=== PATIENT | female | born 1975 | race Two or more races ===

== ENCOUNTER 2017-05-13 07:09 | Day surgery (SDC) | payer OTHER ==
[~2017-05-13] VITALS: Ht 170.2 cm; Wt 78.0 kg
[~2017-05-13 07:09] MED LIST: No meds per pt.; SILVER NITRATE STICK TP ONE
[2017-05-13] MEDS ORDERED: EPINEPHRINE 1 MG/ML, 1ML ONE (07:38)
[2017-05-13] MEDS ORDERED: LIDOCAINE/PF 1%, 30ML ONE (07:39)
[2017-05-13] MEDS ORDERED: LIDOCAINE 1%, 2ML ONE (08:06)
[2017-05-13 08:26] VITALS: BP 127/86
[2017-05-13] MEDS ORDERED: LACTATED RINGERS 1,000 ML IV SCH (08:29)
[2017-05-13] MEDS ORDERED: LIDOCAINE 1%, 2ML SQ PRN (08:30)
[2017-05-13 08:41] LABS: HCG UR OBC PASS
[2017-05-13] MEDS ORDERED: FENTANYL PF 100 MCG/2ML ONE (09:21)
[2017-05-13] MEDS ORDERED: METOCLOPRAMIDE 5 MG/ML, 2ML ONE (09:37)
[2017-05-13] MEDS ORDERED: KETOROLAC 30 MG/1 ML ONE ×2 (09:37)
[2017-05-13] MEDS ORDERED: ONDANSETRON 2MG/ML, 2ML ONE (09:37)
[2017-05-13] MEDS ORDERED: PROPOFOL 10 MG/ML, 20ML ONE (09:37)
[2017-05-13] MEDS ORDERED: DEXAMETHASONE 4 MG/ML, 1ML ONE (09:37)
[2017-05-13] MEDS ORDERED: LIDOCAINE 1%-EPI 1:100K, 30ML INFIL ONE (09:59)
[2017-05-13] MEDS ORDERED: hydrALAzine 20 MG/ML, 1ML IV PRN (10:00)
[2017-05-13] MEDS ORDERED: MIDAZOLAM 1 MG/ML, 2ML IV PRN (10:00)
[2017-05-13] MEDS ORDERED: MEPERIDINE/PF 25MG/0.5ML IVPush PRN (10:00)
[2017-05-13] MEDS ORDERED: ONDANSETRON 2MG/ML, 2ML IVPush PRN (10:00)
[2017-05-13] MEDS ORDERED: LABETALOL 5MG/ML, 20ML IV PRN (10:00)
[2017-05-13] MEDS ORDERED: FENTANYL PF 100 MCG/2ML IV PRN (10:00)
[2017-05-13] MEDS ORDERED: HYDROmorphone 1 MG/ML, 1ML IV PRN (10:00)
[2017-05-13] MEDS ORDERED: OXYcodone 5 MG/5 ML ORAL.SOL UDC PO PRN (10:00)
[2017-05-13] MEDS ORDERED: PROMETHAZINE 25 MG/ML, 1ML IV PRN (10:00)
[2017-05-13] MEDS ORDERED: OXYcodone 5 MG/5 ML ORAL.SOL UDC ONE (10:31)
[2017-05-13] MEDS ORDERED: MEPERIDINE/PF 25MG/0.5ML ONE (10:44)
== END 2017-05-13 12:15 ==
LOC: OUT 07:09
PROVIDERS: ATTEND Student in an Organized Health Care Education/Training Program
DX: N84.0 Polyp of corpus uteri (principal); Z83.3 Family history of diabetes mellitus; Z82.5 Family history of asthma and other chronic lower respiratory diseases
CPT/HCPCS: 36415; 58558; 81025; 85025; 86850; 86900; 88305; J0171; J1100; J1885; J2175; J2405; J2704; J2765; J3010; J3490

== ENCOUNTER → 2018-07-21 | Outpatient (CLI) | payer OTHER ==
[~2018-07-21] MED LIST changes: -SILVER NITRATE STICK TP ONE
== END | disposition home or self-care (01) ==
LOC: CFH 15:49
PROVIDERS: ATTEND Internal Medicine
DX: R91.8 Other nonspecific abnormal finding of lung field (principal)
CPT/HCPCS: 71250

== ENCOUNTER → 2019-02-14 | Outpatient (CLI) | payer OTHER | END | disposition home or self-care (01) | LOC: CFH 15:46 | PROVIDERS: ATTEND Internal Medicine | DX: R91.8 Other nonspecific abnormal finding of lung field (principal) | CPT/HCPCS: 71250 ==

== ENCOUNTER → 2020-06-04 | Outpatient (CLI) | payer OTHER | END | disposition home or self-care (01) | LOC: CFH 14:08 | PROVIDERS: ATTEND Internal Medicine | DX: R91.8 Other nonspecific abnormal finding of lung field (principal) | CPT/HCPCS: 71250 ==